=== PATIENT | female | born 1970 | race Hispanic/Latino ===

== ENCOUNTER 2017-04-21 12:29 | Emergency (ER) | payer OTHER ==
[~2017-04-21] VITALS: Ht 157.5 cm; Wt 63.0 kg
[~2017-04-21 12:29] MED LIST: AMOXICILLIN500 MG OR; PERCOCET 5/325M1 TAB OR; TRAMADOL HCL50 MG OR; ULTRAM50 M1 PO
[2017-04-21] MEDS ORDERED: BACTRIM DS1 TAB PO (13:26)
[2017-04-21 13:30] VITALS: BP 120/66
== END 2017-04-21 13:30 | disposition home or self-care (01) | DRG 603 ==
LOC: ED 12:29
DX: L08.9 Local infection of the skin and subcutaneous tissue, unspecified (principal)

== ENCOUNTER 2017-07-04 18:14 | Emergency (ER) | payer SELFPAY ==
[~2017-07-04] VITALS: Ht 157.5 cm; Wt 68.0 kg
[~2017-07-04 18:14] MED LIST changes: +BACTRIM DS1 TAB PO
[2017-07-04] MEDS ORDERED: PERCOCET 5/325M1 TAB PO (20:09)
[2017-07-04] MEDS ORDERED: BACTRIM DS1 TAB PO (20:09)
[2017-07-04] MEDS ORDERED: KEFLEX500 M1 PO (20:09)
[2017-07-04 20:10] VITALS: BP 128/72
== END 2017-07-04 20:30 | disposition home or self-care (01) | DRG 607 ==
LOC: ED 18:14
DX: S70.361A Insect bite (nonvenomous), right thigh, initial encounter (principal); L02.415 Cutaneous abscess of right lower limb

== ENCOUNTER 2020-03-22 15:31 | Emergency (ER) | payer SELFPAY ==
[~2020-03-22] VITALS: Ht 157.5 cm; Wt 72.0 kg
[~2020-03-22 15:31] MED LIST changes: +KEFLEX500 M1 PO; +PERCOCET 5/325M1 TAB PO
[2020-03-22] MEDS ORDERED: KEFLEX500 MG PO (15:48)
[2020-03-22] MEDS ORDERED: DIFLUCAN150 MG PO (15:50)
[2020-03-22 16:35] VITALS: BP 130/62
== END 2020-03-22 16:35 | disposition home or self-care (01) | DRG 607 ==
LOC: ED 15:31
DX: B35.3 Tinea pedis (principal); L03.032 Cellulitis of left toe

== ENCOUNTER 2020-10-04 19:05 | Emergency (ER) | payer SELFPAY ==
[~2020-10-04] VITALS: Ht 157.5 cm; Wt 63.0 kg
[~2020-10-04 19:05] MED LIST changes: +DIFLUCAN150 MG PO; +KEFLEX500 MG PO
[2020-10-04] MEDS ORDERED: IBUPROFEN600 MG PO ×2 (19:54→20:47)
[2020-10-04] MEDS ORDERED: SOMA350 MG PO (19:56)
[2020-10-04 21:00] VITALS: BP 118/79
== END 2020-10-04 21:00 | disposition home or self-care (01) | DRG 556 ==
LOC: ED 19:05
DX: M25.512 Pain in left shoulder (principal); M25.511 Pain in right shoulder

== ENCOUNTER 2024-07-18 08:14 | Day surgery (SDC) | payer OTHER ==
[~2024-07-18] VITALS: Ht 180.3 cm; Wt 71.7 kg
[~2024-07-18 08:14] MED LIST changes: +B COMPLEX FORMU1 TAB PO; +BIOTIN1 MG PO; +IBUPROFEN600 MG PO; +MG GLUCONATE250 MG PO; +OMEGA 31000 MG PO; +SOMA350 MG PO; +TROSPIUM CL20 MG PO; +VIT E & A PO; +[UNRECOGNIZED DRUG - OTHER] PO
[2024-07-18] MEDS ORDERED: SODIUM CHLORIDE 0.9% 1,000 ML IV ONE (08:37)
[2024-07-18] MEDS ORDERED: FAMOTIDINE 10MG/ML 2ML SDV IV ONE (08:37)
[2024-07-18 11:22] VITALS: BP 110/70
[2024-07-18] MEDS ORDERED: PROPOFOL 200 MG/20 ML VIAL IV ONE (12:09)
[2024-07-18] MEDS ORDERED: LIDOCAINE HCL 2% 2ML SDV IV ONE (12:09)
[2024-07-18] MEDS ORDERED: GLYCOPYRROLATE 0.2 MG/ML IV ONE (12:09)
== END 2024-07-18 11:10 | disposition home or self-care (01) ==
LOC: ENDO 08:14
PROVIDERS: ATTEND Surgery
DX: Z12.11 Encounter for screening for malignant neoplasm of colon (principal); K64.8 Other hemorrhoids; R73.03 Prediabetes
CPT/HCPCS: J1596